=== PATIENT | male | born 1950 | race Caucasian/White ===

== ENCOUNTER 2016-12-09 06:00 | Day surgery (SDC) | payer MEDICARE, BC ==
[~2016-12-09] VITALS: Ht 177.8 cm; Wt 84.1 kg
[~2016-12-09 06:00] MED LIST: GLUCOPHAGE1000 MG PO; NORVASC10 MG PO
[2016-12-09] MEDS ORDERED: LIPITOR20 MG PO (07:14)
[2016-12-09 07:19] VITALS: BP 134/83; Ht 177.8 cm; Wt 84.1 kg
[2016-12-09 07:29] LABS: BASOPHILS 0.7 % (0.0-2.0); EOSINOPHILS 2.7 % (0-7); HEMATOCRIT 45.7 % (42.0-54.0); HEMOGLOBIN 15.3 g/dL (13.5-17.5); IMMATURE GRANULOCYTES 0.1 % (0-5); LYMPHOCYTES 33.6 % (15-50); MCH 29.9 pg (26.0-34.0); MCHC 33.5 g/dL (31.0-37.0); MCV 89.4 fL (80.0-100.0); MEAN PLATELET VOLUME 9.9 fL (7.4-10.4); MONOCYTES 9.3 % (2-11); NEUTROPHILS 53.6 % (40-80); PLATELET COUNT 139 10x3/uL (130-400); RBC 5.11 10x6/uL (4.20-6.10); RDW 12.6 % (11.5-14.5)
[2016-12-09 07:38] LABS: CALC OSMOLALITY 282 mosm/kg (275-300); CALCIUM 8.6 mg/dL (8.5-10.1); CARBON DIOXIDE 27.3 mmol/L (21.0-32.0); CHLORIDE - SERUM 105 mmol/L (98-107); GLUCOSE 179 mg/dL (74-106); POTASSIUM - SERUM 4.2 mmol/L (3.5-5.1); SODIUM 139 mmol/L (136-145); UREA NITROGEN 14 mg/dL (7-18); eGFR NON AFRICAN AMERICAN 79 mL/min (90-120)
--- NOTE | 2016-12-09 10:34 | NUR ---
1000 IV DC WITH CATHER TIP INTACT
--- NOTE | 2017-01-21 10:17 | HP ---
PATIENT: ROSEMARIE DUPONT MEDICAL RECORD: [id number] ACCOUNT: [id number] LOCATION:[facility] : 50 ADMISSION DATE: 12/09/16 HISTORY AND PHYSICAL EXAMINATION CHIEF COMPLAINT: Hanna's. HISTORY OF PRESENT ILLNESS: The patient has Hanna's esophagus. He is here for surveillance upper endoscopy. He has had no dysphagia. He has had a history of dysphagia in the past. He is having no epigastric pain. No melena. The risks, possible complications and alternatives to upper endoscopy were explained to the patient. He elects to proceed. PAST MEDICAL AND SURGICAL HISTORY: Noninsulin dependent diabetes mellitus, history of colonoscopy, history of colon polyps, history of Hanna's, history of neck surgery and hypertension. SOCIAL HISTORY: He is a smoker. REVIEW OF SYSTEMS: Negative for CVA or seizures. Negative for renal disease or hepatitis. ALLERGIES: No known drug allergies. HOME MEDICINES: Norvasc, Lipitor, Glucophage. PHYSICAL EXAMINATION: GENERAL: The patient does not appear acutely ill. He does not appear chronically ill. VITAL SIGNS: Reviewed. HEAD: External ears appear normal. EYES: Extraocular movements are intact. NECK: Trachea is midline. CHEST: No intercostal retractions. PULMONARY: Nonlabored and no stridor. ABDOMEN: Nontender. IMPRESSION: History of Hanna esophagus. PLAN: Will be surveillance upper endoscopy with biopsies. TRANSINT:[id number] Voice Confirmation ID: [id number] DOCUMENT ID: [id number] GLEN NAVA MD at 1017 CC: [id number] DICTATION DATE: 12/09/16 0842 TRADER: 12/09/16 0849 [facility] 12/09/16 [id number] [place] [address]
--- NOTE | 2017-01-21 10:17 | OP ---
PATIENT NAME: ROSEMARIE DUPONT MEDICAL RECORD: [id number] :50 LOCATION:D.OPS ADMISSION DATE: SURGEON: GLEN NAVA MD DATE OF OPERATION: 12/09/2016 PREOPERATIVE DIAGNOSIS: History of Hanna esophagus in need of a surveillance upper endoscopy with biopsies. POSTOPERATIVE DIAGNOSES: History of Hanna esophagus in need of a surveillance upper endoscopy with biopsies with distal peptic Schatzki's type stricture. OTHER DIAGNOSES: Hill grade III esophagogastric junction, large hiatal hernia. PROCEDURE: Esophagogastroduodenoscopy with antral and distal esophageal biopsies. Esophageal dilation to 60-Bruneian through the catheter balloon. SURGEON: Glen Nava MD CONCRETE [employer] FABRICATING SUPERVISOR: None. BLOOD LOSS: Minimal. ANESTHESIA: IV sedation. COMPLICATIONS: None. The reason for the anesthesia staff being present during the procedure includes a significant history of smoking, as well as reactive airway and the probable need for manipulation of the airway, which was necessary during the procedure. ENDOSCOPIC COURSE: The patient was conveyed to endoscopy suite electively on 12/09/2016. IV sedation was induced by anesthesia staff. A bite block was inserted. A gastroscope was inserted into the mouth. It was advanced easily into the hypopharynx. The esophagus was easily intubated as were the stomach and duodenum. Upon withdrawal, retroflexed, an angulus views were obtained. Antral biopsies were obtained. I withdrew into the cardia of the stomach. I inflated through the catheter balloon. I sequentially dilated the entire length of the esophagus to 60-Bruneian. The balloon dilator and the gastroscope were then withdrawn. The balloon dilator was removed. I reintubated the esophagus. There had been no evidence of false passage or perforation. I then biopsied the stricture at 4 quadrants. I also biopsied areas of Hanna esophagus. This was short segment Hanna's. The endoscope was then withdrawn under direct vision. I will see the patient in my office in 2-3 weeks. TRANSINT:[id number] Voice Confirmation ID: [id number] DOCUMENT ID: [id number] OPERATIVE REPORT [id number] DAREN DUPONTNIE Durga GLEN NAVA MD at 1017 CC: [id number] DICTATION DATE: 12/09/16912 POWER TRANSFORMER REPAIRER: 12/09/1631 [facility] 12/09/16 [facility] [address] [facility] [place] [address]
== END 2016-12-09 10:15 | disposition home or self-care (01) ==
LOC: D.OPS 06:00
PROVIDERS: Anesthesiology
DX: K29.50 Unspecified chronic gastritis without bleeding (principal); K22.70 Barrett's esophagus without dysplasia; K44.9 Diaphragmatic hernia without obstruction or gangrene; F17.200 Nicotine dependence, unspecified, uncomplicated; E11.9 Type 2 diabetes mellitus without complications; I10 Essential (primary) hypertension; Z86.010 Personal history of colon polyps; Z79.84 Long term (current) use of oral hypoglycemic drugs; Z79.899 Other long term (current) drug therapy

== ENCOUNTER → 2018-06-28 11:22 | Outpatient (CLI) | payer MEDICARE, BC ==
[2016-12-09 07:19] VITALS: BMI 26.6
[~2018-06-28 11:22] MED LIST changes: +LIPITOR20 MG PO
== END | disposition home or self-care (01) ==
LOC: D.CT 11:22
DX: R93.8 Abnormal findings on diagnostic imaging of other specified body structures (principal)